=== PATIENT | female | born 1980 | race African-American/Black ===

== ENCOUNTER 2018-07-09 16:56 | Emergency (ER) | payer SELFPAY ==
[~2018-07-09] VITALS: Ht 162.6 cm; Wt 84.0 kg
[2018-07-09 17:30] VITALS: BP 139/88
[2018-07-09] MEDS ORDERED: BENADRYL (17:30)
== END 2018-07-09 21:55 | disposition left against medical advice (07) ==
LOC: ER 16:56
DX: R07.9 Chest pain, unspecified (principal); Z53.21 Procedure and treatment not carried out due to patient leaving prior to being seen by health care provider